=== PATIENT | female | born 1975 | race Caucasian/White ===

== ENCOUNTER 2016-10-17 16:42 | Observation (INO) | payer BC ==
[2016-10-17] VITALS (7 sets, daily range): BP systolic 135–188; BP diastolic 74–99; PULSE 77–94; RESP 15–18; TEMP 98.5; O2SAT 96–98
[~2016-10-17] VITALS: Ht 165.1 cm; Wt 98.1 kg
[~2016-10-17 16:42] MED LIST: AUGM875T PO; FLUT1SPR9 EACH NARE; TIMO0.2525 EACH EYE
[2016-10-17] MEDS ORDERED: SODIUM CHLOR 0.9% 1000 ML INJ 1,000 ML IV ONE (16:46)
[2016-10-17] MEDS ORDERED: niCARdipine INJ 25 MG in SODIUM CHLOR 0.9% 250 ML INJ 250 ML IV SCH (17:00)
--- NOTE | 2016-10-17 17:08 | RADRPT ---
EXAM DATE/TIME: 10/17/2016 16:52 [facility] COMPARISON: No previous studies available for comparison. INDICATIONS : Stroke Alert- left sided weakness. RADIATION DOSE: 39.14 CTDIvol (mGy) This report was called by Dr Silveira to Dr. Gage at 1705 MEDICAL HISTORY : None SURGICAL HISTORY : None. ENCOUNTER: Initial ACUITY: 1 day PAIN SCALE: 2/10 LOCATION: Bilateral cranial TECHNIQUE: Multiple contiguous axial images were obtained of the head. Using automated exposure control and adj ustment of the mA and/or kV according to patient size, radiation dose was kept as low as reasonably a chievable to obtain optimal diagnostic quality images. FINDINGS: CEREBRUM: The ventricles are normal for age. No evidence of midline shift, mass lesion, hemorrhage or acute in farction. No extra-axial fluid collections are seen. POSTERIOR FOSSA: The cerebellum and brainstem are intact. The 4th ventricle is midline. The cerebellopontine angle i s unremarkable. EXTRACRANIAL: The visualized portion of the orbits is intact. SKULL: The calvaria is intact. No evidence of skull fracture. CONCLUSION: Normal examination. Chacho Silveira Jr., MD on October 17, 2016 at 17:04 Board Certified Radiologist. This report was verified electronically.
[2016-10-17 17:15] LABS: AUTOMATED NEUTROPHIL # 5.9 TH/MM3 (1.8-7.7); BASOPHIL # 0.1 TH/MM3 (0-0.2); BASOPHIL % 0.6 % (0.0-2.0); EOSINOPHIL # 0.3 TH/MM3 (0-0.4); EOSINOPHIL % 2.9 % (0.0-4.0); HEMATOCRIT 39.9 % (35.0-46.0); HEMO FLAGS DIFF FINAL; LYMPH % 30.8 % (9.0-44.0); LYMPHOCYTE # 3.1 TH/MM3 (1.0-4.8); MEAN CELL VOLUME 83.4 FL (80.0-100.0); MEAN CORPUSCULAR HEMOGLOBIN 27.3 PG (27.0-34.0); MEAN CORPUSCULAR HGB CONC 32.8 % (32.0-36.0); MONO % 6.5 % (0.0-8.0); NEUT % 59.2 % (16.0-70.0); PLATELET COUNT 281 TH/MM3 (150-450); RED BLOOD COUNT 4.79 MIL/MM3 (4.00-5.30); RED CELL DISTRIBUTION WIDTH 13.9 % (11.6-17.2)
[2016-10-17 17:16] LABS: BLOOD, URINE NEG (NEG); GLUCOSE,URINE NEG (NEG); KETONE, URINE NEG (NEG); MUCUS URINE FEW /lpf (OCC); NITRITE,URINE NEG (NEG); PH, URINE 5.5 (5.0-8.5); SQUAMOUS EPITHELIAL CELL URINE 7 /hpf (0-5); URINE COLOR YELLOW (YELLW/STRAW)
--- NOTE | 2016-10-17 17:17 | PD ---
HPI Chief Complaint: left facial numbness Time Seen by Provider: 16:45 Travel History International Travel<30 days: No Contact w/Intl Traveler<30days: No History of Present Illness HPI 40-year-old female presents with 1-1/2 hour history of left-sided numbness and feeling like her face feels funny. She states over the past 2 days she's had intermittent headache but denies one currently. She denies any numbness to her arms or legs. She denies any specific weakness. She denies any trauma. 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 Quality is feels funny. Severity is left side of face. PFSH Past Medical History Autoimmune Disease: Yes (states "unidentified autoimmune disease") Diminished Hearing: No Gastrointestinal Disorders: Yes (fatty liver) Tubal Ligation: Yes Past Surgical History Gynecologic Surgery: Yes (LEFT FALLOPIAN TUBE REMOVAL) Social History Alcohol Use: No Tobacco Use: No Substance Use: No Allergies-Medications (Allergen,Severity, Reaction): Coded Allergies: Epinephrine (Verified Allergy, Severe, SEIZURES, 10/17/16) Keflex (Verified Allergy, Severe, Hives, 10/17/16) Cipro (Verified Allergy, Unknown, HIVES, 10/17/16) Zithromax (Verified Allergy, Unknown, HIVES, 10/17/16) Reported Meds & Prescriptions Reported Meds & Active Scripts Active No Active Prescriptions or Reported Medications Review of Systems Except as stated in HPI: all other systems reviewed are Neg Physical Exam Narrative GENERAL: Well-nourished, well-developed patient. SKIN: Warm and dry. HEAD: Normocephalic and atraumatic. EYES: No injection or drainage. ENT: No nasal drainage noted. NECK: Supple, trachea midline. CARDIOVASCULAR: Regular rate and rhythm RESPIRATORY: no increased effort. No accessory muscle use. GASTROINTESTINAL: Abdomen soft, non-tender, nondistended. EXTREMITIES: No edema. NEUROLOGICAL: Awake and alert. Motor and sensory grossly within normal limits except subjectively states left face feels different. Normal speech. Facial droop noted Data Data Last Documented VS Vital Signs Date Time Temp Pulse Resp B/P Pulse Ox O2 Delivery O2 Flow Rate FiO2 10/17/16 18:32 84 15 135/74 96 Room Air 10/17/16 16:46 21 Orders Diet Npo (10/17/16 Dinner) Activity Bed Rest (10/17/16 ) Electrocardiogram (10/17/16 ) I-Stat Creatinine (10/17/16 16:46) I-Stat Profile (10/17/16 16:46) Prothrombin Time / Inr (Pt) (10/17/16 16:46) Act Partial Throm Time (Ptt) (10/17/16 16:46) Complete Blood Count With Diff (10/17/16 16:46) Fibrinogen (10/17/16 16:46) Creatine Kinase (Cpk) (10/17/16 16:46) Troponin I (10/17/16 16:46) Ua Includes Microscopic (10/17/16 16:46) Drug Screen, Random Urine (10/17/16 16:46) Type And Screen (10/17/16 16:46) Ct Brain W/O Iv Contrast(Rout) (10/17/16 ) Chest, Single Ap (10/17/16 ) Beta Hcg (Quant/Titer) (10/17/16 16:46) Blood Glucose (10/17/16 16:46) Ecg Monitoring (10/17/16 16:46) Neuro Checks Q2HX12,Q4H (10/17/16 16:46) Nursing Bedside Swallow Assess .ONCE (10/17/16 16:46) Iv Access Insert/Monitor (10/17/16 16:46) NPO (10/17/16 16:46) Oximetry (10/17/16 16:46) Sodium Chlor 0.9% 1000 Ml Inj (Ns 1000 M (10/17/16 16:46) Resp Oxygen Francois C Titrat 1-4 L (10/17/16 16:46) Cath For Specimen (10/17/16 16:46) Nicardipine Inj (Cardene Inj) (10/17/16 17:00) Mri Brain W/O Contrast (10/17/16 ) Mra Brain W/O Contrast (Cow) (10/17/16 ) Mri C Spine W/O Contrast (10/17/16 ) Consult Neurology (10/17/16 ) Admit Order (Ed Use Only) (10/17/16 18:33) Labs Laboratory Tests Test 10/17/16 10/17/16 16:50 16:55 White Blood Count 10.0 TH/MM3 Red Blood Count 4.79 MIL/MM3 Hemoglobin 13.1 GM/DL Bedside Hemoglobin 14.3 G/DL Hematocrit 39.9 % Bedside Hematocrit 42.0 % Mean Corpuscular Volume 83.4 FL Mean Corpuscular Hemoglobin 27.3 PG Mean Corpuscular Hemoglobin 32.8 % Concent Red Cell Distribution Width 13.9 % Platelet Count 281 TH/MM3 Mean Platelet Volume 7.4 FL Neutrophils (%) (Auto) 59.2 % Lymphocytes (%) (Auto) 30.8 % Monocytes (%) (Auto) 6.5 % Eosinophils (%) (Auto) 2.9 % Basophils (%) (Auto) 0.6 % Neutrophils # (Auto) 5.9 TH/MM3 Lymphocytes # (Auto) 3.1 TH/MM3 Monocytes # (Auto) 0.7 TH/MM3 Eosinophils # (Auto) 0.3 TH/MM3 Basophils # (Auto) 0.1 TH/MM3 CBC Comment DIFF FINAL Differential Comment Prothrombin Time 10.0 SEC Prothromb Time International 0.9 RATIO Ratio Activated Partial 28.0 SEC Thromboplast Time Fibrinogen 342 mg/dL Bedside Sodium 141 MMOL/L Bedside Potassium 3.3 MMOL/L Bedside Chloride 101 MMOL/L Bedside Blood Urea Nitrogen 13 MG/DL Bedside Creatinine 0.7 MG/DL Bedside Glucose 123 MG/DL Total Creatine Kinase 59 U/L Troponin I LESS THAN 0.02 NG/ML Human Chorionic Gonadotropin, LESS THAN 1 Quant MIU/ML Blood Type O POSITIVE Antibody Screen NEGATIVE Blood Bank Comment Urine Color YELLOW Urine Turbidity HAZY Urine pH 5.5 Urine Specific [place] 1.031 Urine Protein TRACE mg/dL Urine Glucose (UA) NEG mg/dL Urine Ketones NEG mg/dL Urine Occult Blood NEG Urine Nitrite NEG Urine Bilirubin NEG Urine Urobilinogen LESS THAN 2.0 MG/DL Urine Leukocyte Esterase NEG Urine RBC LESS THAN 1 /hpf Urine WBC 1 /hpf Urine Squamous Epithelial 7 /hpf Cells Urine Mucus FEW /lpf Microscopic Urinalysis Comment Urine Opiates Screen NEG Urine Barbiturates Screen NEG Urine Amphetamines Screen NEG Urine Benzodiazepines Screen NEG Urine Cocaine Screen NEG Urine Cannabinoids Screen NEG [facility] Medical Decision Making Medical Screen Exam Complete: Yes Emergency Medical Condition: Yes Medical Record Reviewed: Yes (pmh confirmed) Interpretation(s) CBC & BMP Diagram 10/17/16 16:50 Last 24 hours Impressions Head Magnetic Resonance Angiography 10/17/16 0000 Signed Impressions: Service Date/Time: Monday, October 17, 2016 17:40 - CONCLUSION: 1. Negative examination. Tom Bales MD Head CT 10/17/16 0000 Signed Impressions: Service Date/Time: Monday, October 17, 2016 16:52 - CONCLUSION: Normal examination. Chacho Silveira Jr., MD Chest X-Ray 10/17/16 0000 Signed Impressions: Service Date/Time: Monday, October 17, 2016 17:14 - CONCLUSION: 1. No acute cardiopulmonary findings. Tom Bales MD Brain MRI 10/17/16 0000 Signed Impressions: Service Date/Time: Monday, October 17, 2016 17:40 - CONCLUSION: 1. Chronic maxillary sinus disease. 2. No acute intracranial abnormality. Chacho Silveira Jr., MD EKG shows NSR, no ST elevation or depression, and no arrhythmias. No significant T-wave inversions. Differential Diagnosis Mass, bleed, Zamarripa's palsy, stroke.... Narrative Course Given window Will initiate stroke alert and discuss with neurologist Patient's blood pressure improved on its own without medication. CT without bleed. nih stroke scale 2 for me with mild facial droop and sensory changes in face mri's no acute, will place in observation for monitoring after discussion with dr wood Physician Communication Physician Communication dr wood states no tpa given minor symptoms dr wood states to place in observation, no need for aspirin, ?migraine dr nunez agrees to admit Diagnosis Primary Impression: Facial numbness Scripts No Active Prescriptions or Reported Meds Maria E Gage MD Oct 17, 2016 17:17 Maria E Gage MD Oct 17, 2016 17:17
[2016-10-17 17:18] LABS: I-STAT POTASSIUM 3.3 MMOL/L (3.5-4.9); I-STAT SODIUM 141 MMOL/L (138-146)
[2016-10-17 17:23] LABS: AMPHETAMINE, URINE NEG (NEG); BARBITURATES, URINE NEG (NEG); COCAINE, URINE NEG (NEG)
--- NOTE | 2016-10-17 17:24 | RADRPT ---
EXAM DATE/TIME: 10/17/2016 17:14 [facility] COMPARISON: No previous studies available for comparison. INDICATIONS : Stroke alert. Patient came to ER with headache and facial pain. MEDICAL HISTORY : None. SURGICAL HISTORY : None. ENCOUNTER: Initial ACUITY: 1 day PAIN SCORE: 0/10 LOCATION: chest FINDINGS: A single view of the chest demonstrates the lungs to be symmetrically aerated without evidence of mas s, infiltrate or effusion. The cardiomediastinal contours are unremarkable. Osseous structures are intact. CONCLUSION: 1. No acute cardiopulmonary findings. Tom Bales MD on October 17, 2016 at 17:22 Board Certified Radiologist. This report was verified electronically.
[2016-10-17 17:37] LABS: BETA HCG QUANT LESS THAN 1 MIU/ML (0-5); INTERNATIONAL NORMALIZED RATIO 0.9 RATIO
[2016-10-17 17:39] LABS: CREATINE KINASE 59 U/L (26-192)
--- NOTE | 2016-10-17 18:00 | RADRPT ---
EXAM DATE/TIME: 10/17/2016 17:40 [facility] COMPARISON: No previous studies available for comparison. INDICATIONS : CVA. Cephalgia and left arm weakness. Vision changes. MEDICAL HISTORY : None. SURGICAL HISTORY : Tubal ligation. ENCOUNTER: Subsequent ACUITY: 1 day PAIN SCORE: 3/10 LOCATION: head. Please note a normal MRA of the brain does not entirely exclude the possibility of a small aneurysm, nor the possibility of distal intracranial vessel disease. TECHNIQUE: 3D time of flight MRA was performed. Source images, multiplanar STS MIP, and 3D volume MIP reconstru ctions were reviewed. FINDINGS: There is excellent visualization of the major intracranial arteries out to the second-order branch ve ssels. There is no evidence for aneurysm, vessel truncation or stenosis, and no evidence for vascula r malformation. CONCLUSION: 1. Negative examination. Tom Bales MD on October 17, 2016 at 17:56 Board Certified Radiologist. This report was verified electronically.
--- NOTE | 2016-10-17 18:22 | RADRPT ---
EXAM DATE/TIME: 10/17/2016 17:40 [facility] COMPARISON: CT BRAIN W/O CONTRAST, October 17, 2016, 16:52. INDICATIONS : CVA. Cephalgia and left arm weakness. Vision changes. MEDICAL HISTORY : None. SURGICAL HISTORY : Tubal ligation. ENCOUNTER: Subsequent ACUITY: 1 day PAIN SCORE: 3/10 LOCATION: head. TECHNIQUE: Multiplanar, multisequence MRI of the brain was performed without contrast. FINDINGS: CEREBRUM: The ventricles are normal for age. No evidence of midline shift, mass lesion, hemorrhage or acute in farction. No extraaxial fluid collections are seen. The pituitary gland and suprasellar cistern are normal in configuration. WHITE MATTER: No significant signal abnormalities are seen in the white matter. POSTERIOR FOSSA: The cerebellum and brainstem are intact. The 4th ventricle is midline. The cerebellopontine angle is unremarkable. The cerebellar tonsils are normal in position. DIFFUSION IMAGING: No focal areas of restricted diffusion are seen. No evidence of acute infarction. EXTRACRANIAL: The visualized portions of the orbits are unremarkable. Mucosal thickening without air-fluid levels a re seen involving the maxillary sinuses bilaterally. Mastoid air cells are clear. CONCLUSION: 1. Chronic maxillary sinus disease. 2. No acute intracranial abnormality. Chacho Silveira Jr., MD on October 17, 2016 at 18:12 Board Certified Radiologist. This report was verified electronically.
[2016-10-17] MEDS ORDERED: SODIUM CHLORIDE 0.9% FLUSH 10 ML FLUSH IV FLUSH PRN (18:45)
[2016-10-17] MEDS ORDERED: ACETAMINOPHEN 325 MG TAB PO PRN (18:45)
[2016-10-17] MEDS ORDERED: hydrALAZINE HCL 10 MG TAB PO PRN (18:45)
[2016-10-17] MEDS ORDERED: NALOXONE HCL 0.4 MG/ML AMP IV PRN (18:45)
[2016-10-17] MEDS ORDERED: ACETAMINOPHEN/HYDROcodone 325 MG/5 MG TAB PO PRN (18:45)
[2016-10-17] MEDS ORDERED: ONDANSETRON HCL 4 MG/2 ML VIAL IVP PRN (18:45)
--- NOTE | 2016-10-17 20:09 | RADRPT ---
EXAM DATE/TIME: 10/17/2016 18:56 [facility] COMPARISON: No previous studies available for comparison. INDICATIONS : Transient ischemic attack. MEDICAL HISTORY : Fatty liver disease. Ectopic . SURGICAL HISTORY : Tubal ligation. Left salpingectomy. ENCOUNTER: Initial ACUITY: 1 day PAIN SCORE: 0/10 LOCATION: Bilateral neck PEAK SYSTOLIC VELOCITIES (cm/sec): ICA/CCA RATIO: Right: 1.0 Left: 0.9 ICA: Right: 102 Left: 86 CCA: Right: 99 Left: 97 ECA: Right: 101 Left: 108 VERTEBRAL: Right: 53 antegrade Left: 47 antegrade Elevated flow velocities and ICA/CCA ratios have been found to correlate with increased degrees of vessel stenosis, calculated as percentage of diameter relative to a normal segment of distal ICA/CCA FINDINGS: RIGHT CAROTID: No significant stenosis is visualized. The waveforms are within normal limits. LEFT CAROTID: No significant stenosis is visualized. The waveforms are within normal limits. VERTEBRAL ARTERIES: Antegrade flow is seen in both vertebral arteries. MISCELLANEOUS: None. CONCLUSION: Unremarkable exam no evidence of stenosis. Gerardo Hunt MD on October 17, 2016 at 20:06 Board Certified Radiologist. This report was verified electronically.
--- NOTE | 2016-10-17 20:13 | MH ---
cc: JT HOWARD MD DATE OF ADMISSION 10/17/2016 DATE OF 1975 No travel in the last 30 days. CHIEF COMPLAINT Left facial numbness and headache. HISTORY OF THE PRESENT ILLNESS This is a pleasant 40-year female who is been experiencing some headaches for the past 3 days. She states that she has noted some waxing and waning of these headaches for the past 2 weeks. She has also noted some facial numbness which has lasted approximately an hour and half before being checked in the emergency room. The patient currently has a mild left facial droop but no acute numbness noted in her extremities. She denies any recent trauma. She does have autoimmune disease, but otherwise has been fairly healthy. She has been followed in the past for headaches which she feels may have been cluster headaches. But this was approximately 10 years ago or more. Up until the last few days the patient had been in her normal state of health without any other issues. PAST MEDICAL HISTORY 1. Unidentified autoimmune disease. 2. ____. 3. Fatty liver disease. 4. Headaches, possible cluster headaches. 5. History of epilepsy. PAST SURGICAL HISTORY Left fallopian tube removal. ALLERGIES CIPRO, EPINEPHRINE, KEFLEX, ZITHROMAX. SOCIAL HISTORY The patient is , currently lives at home with her . She has family at her bedside. She denies any tobacco or illicit drug use but does partake rare social alcohol drink. MEDICATIONS Reported, no active. REVIEW OF SYSTEMS Positives noted in HPI which have been some headaches and her facial numbness with some mild left-sided droop. Other systems negative or unremarkable. PHYSICAL EXAMINATION VITAL SIGNS: Pulse is 84-94, respiratory rate 15, blood pressure initially 188/99 and now 135/74. O2 sat 96% on room air. GENERAL: Obese female, looks to be her stated age resting on a stretcher. She is alert, oriented and cooperative. Speech is understandable but possibly slower than her norm according to her family. Skin is pink mucous membranes, warm and dry. HEENT: Atraumatic, normocephalic. PERRLA. Her smile is asymmetric with some mild drooping noted to the left corner. Tongue is midline. NECK: Supple. HEART: Sounds S1-S2, regular rate and rhythm. No murmurs, rubs, or gallops. She has no current edema in her lower extremities. LUNGS: Are essentially clear anteriorly and posteriorly with no wheezes, rales or rhonchi. ABDOMEN: Round, soft, nontender, nondistended. Active bowel sounds. MUSCULOSKELETAL: Moves her upper and lower extremities with purpose. She has equal clam treader. NEUROLOGIC: She is alert, oriented. A good historian. Positive left facial droop noted, still has some numbness. PSYCHIATRIC: Appropriate mood and affect. LABORATORY DATA Diagnostic data, negative for any opiates, barbiturates, amphetamines, benzodiazepines, cocaine or cannabis. PT INR is 0.9. APTT 28. Fibrinogen level 342. WBC count 10, RBC 4.79, hemoglobin 13.1 and 14.3 on the POC hemoglobin. Dif is negative. Chemistry, sodium 141, potassium 3.3, chloride 101, BUN 13, creatinine 0.7, glucose 123. Creatine kinase 59. Troponin 0.02. HCG less than 1.0. Urine is negative except for the turbid color of yellow and hazy, trace of protein. Negative for leukocyte esterase. IMAGING The imaging studies show a brain MRI to be chronic maxillary sinus disease. Chest x-ray is normal. Head CT is normal examination. MRA of the head is negative examination. ASSESSMENT 1. Facial numbness with facial droop, rule out TIA or CVA event. 2. Headaches, acute on chronic. 3. History of epilepsy. 4. Hypokalemia, mild. Our plan is to admit initially for observation. We will monitor vital signs q.4 and as needed. Keep her on telemetry. Start her on D5 and half NS with 20 of K and recheck labs in the morning. As needed medications for pain and nausea. DVT prophylaxis with heparin. 2-D echo, carotid ultrasound to be done. We have consulted neuro for his expert opinion. We will continue to monitor her symptom management. The patient is full code, full aggressive care. We will follow. Dictated by: ADI Ricks MD PONCHO Stanley/DAYAN /6:59 PM /7:35 PM
--- NOTE | 2016-10-17 20:40 | RADRPT ---
EXAM DATE/TIME: 10/17/2016 20:07 [facility] COMPARISON: No previous studies available for comparison. INDICATIONS : Left arm weakness. MEDICAL HISTORY : None. SURGICAL HISTORY : Tubal ligation. ENCOUNTER: Subsequent ACUITY: 1 day PAIN SCORE: 0/10 LOCATION: neck. TECHNIQUE: Multiplanar, multisequence MRI examination of the cervical spine was performed. FINDINGS: VERTEBRAE: Normal vertebral body height. Homogeneous marrow signal. ALIGNMENT: No evidence of subluxation. CORD: Normal configuration and signal. POST FOSSA: The cerebellar tonsils are normal in position. C2-C3: The thecal sac has a normal configuration. There is no evidence of disc herniation or spinal canal s tenosis. The neural foramina are patent bilaterally. C3-C4: The thecal sac has a normal configuration. There is no evidence of disc herniation or spinal canal s tenosis. The neural foramina are patent bilaterally. C4-C5: The thecal sac has a normal configuration. There is no evidence of disc herniation or spinal canal s tenosis. The neural foramina are patent bilaterally. C5-C6: The thecal sac has a normal configuration. There is no evidence of disc herniation or spinal canal s tenosis. The neural foramina are patent bilaterally. C6-C7: The thecal sac has a normal configuration. There is no evidence of disc herniation or spinal canal s tenosis. The neural foramina are patent bilaterally. C7-T1: The thecal sac has a normal configuration. There is no evidence of disc herniation or spinal canal s tenosis. The neural foramina are patent bilaterally. CONCLUSION: Unremarkable exam. Gerardo Hunt MD on October 17, 2016 at 20:37 Board Certified Radiologist. This report was verified electronically.
[2016-10-17] MEDS: D5-1/2 NS + KCL 20 MEQ INJ 1,000 ML IV SCH (20:44)
[2016-10-17] MEDS: HEPARIN SODIUM - SQ 10,000 UNITS/ML VIAL SQ SCH (20:45)
[2016-10-17] MEDS: SODIUM CHLORIDE 0.9% FLUSH 10 ML FLUSH IV FLUSH SCH (20:45)
[2016-10-18] VITALS (9 sets, daily range): BP systolic 103–146; BP diastolic 57–88; PULSE 64–83; RESP 16–21; TEMP 97.5–99; O2SAT 95–99
[2016-10-18 04:20] LABS: AUTOMATED NEUTROPHIL # 4.4 TH/MM3 (1.8-7.7); BASOPHIL % 0.4 % (0.0-2.0); EOSINOPHIL # 0.2 TH/MM3 (0-0.4); EOSINOPHIL % 3.1 % (0.0-4.0); HEMO FLAGS DIFF FINAL; LYMPHOCYTE # 2.3 TH/MM3 (1.0-4.8); MEAN CELL VOLUME 83.5 FL (80.0-100.0); MEAN CORPUSCULAR HEMOGLOBIN 27.3 PG (27.0-34.0); MEAN CORPUSCULAR HGB CONC 32.7 % (32.0-36.0); MONO % 6.1 % (0.0-8.0); NEUT % 59.4 % (16.0-70.0); PLATELET COUNT 242 TH/MM3 (150-450); RED BLOOD COUNT 4.43 MIL/MM3 (4.00-5.30); RED CELL DISTRIBUTION WIDTH 14.1 % (11.6-17.2); WHITE BLOOD COUNT 7.4 TH/MM3 (4.0-11.0)
[2016-10-18 04:50] LABS: BICARBONATE 25.7 MEQ/L (21.0-32.0); POTASSIUM 3.8 MEQ/L (3.5-5.1)
[2016-10-18 04:56] LABS: HDL CHOLESTEROL 39.6 MG/DL (40.0-60.0)
[2016-10-18] MEDS: HEPARIN SODIUM - SQ 10,000 UNITS/ML VIAL SQ SCH (08:42)
[2016-10-18] MEDS: SODIUM CHLORIDE 0.9% FLUSH 10 ML FLUSH IV FLUSH SCH ×2 (08:42→23:11)
--- NOTE | 2016-10-18 08:52 | MB ---
cc: TERESA BRAR. PHD DATE OF CONSULTATION 10/17/2016 REASON FOR CONSULTATION Stroke alert HISTORY OF PRESENT ILLNESS Ms. Johnson is a 40-year-old female who has a past medical history of iritis. She has developed a severe headache over the past several days which she describes as being a right occipital throbbing headache coming and going in pulses. Earlier today shortly before arrival, she started to feel a sense of weakness of the left face with some numbness. She might have had some mild numbness of the left arm, but initially she denied this symptom. Denied weakness of the extremities. She has no history of migraine headaches or stroke in the past. PERSONAL HISTORY History of iritis otherwise unremarkable. MEDICATIONS AT HOME None NEUROLOGIC EXAMINATION Blood pressure initially was elevated, currently it is 144/83, pulse is 94, respirations of 15. Higher cortical functions are normal including speech and cranial nerve exam. She is alert. The pupils are equal and reactive to light. The extraocular movements are intact. I do not see a definite facial droop at the present time. She is able to activate facial muscles symmetric. Sensation is subjectively diminished in the left face. On motor examination, she has got 5/5 strength of all groups in both upper and lower extremities. At the present time, there is no drift. Fine motor skills are normal. Sensory exam diminished in the left arm and left leg. Is soft to touch. Reflexes are symmetric. CT of the brain is normal. MRA of the brain is within normal limits. MRI of the brain was accomplished, the result of which is pending at the present time. IMPRESSION At the present time, I do not identify signs to indicate a stroke. Migraine variant is a possibility. The patient is not a candidate for IV tPA due to the ambiguity of her symptoms not definitely stroke-like in nature. Would recommend follow up on the official report of the brain MRI. I did review the images of the brain MRI and did not see any definite diffusion abnormality. We will also obtain an MRI of the cervical spine to be sure she does not have cervical spondylosis contributing to her headache which appears to be predominantly in the occipital area. MD NOELLE Yadav/JUAN A /6:17 PM 8:37 AM
--- NOTE | 2016-10-18 08:59 | HHI.PR ---
Subjective Remarks Resting in bed sleeping soundly this early a.m. States that she still has some numbness especially in her mouth Possible dysphasia, ST to eval Vital signs trends normal (Coty Morales) Objective Objective Results - Vital Signs Date Time Temp Pulse Resp B/P Pulse Ox O2 Delivery O2 Flow Rate FiO2 10/18/16 08:23 98 21 10/18/16 08:22 97.9 73 16 125/60 98 122/79 125/86 10/18/16 04:57 98.4 70 18 146/69 97 10/18/16 01:30 98.4 73 21 116/58 98 10/17/16 23:17 77 10/17/16 21:18 98.5 87 18 158/95 98 10/17/16 18:59 75 16 135/74 98 10/17/16 18:32 84 15 135/74 96 Room Air 10/17/16 17:07 94 15 144/83 97 10/17/16 16:55 84 15 188/99 98 Room Air 10/17/16 16:55 82 15 188/99 98 Room Air 10/17/16 16:55 88 15 99 Room Air 10/17/16 16:46 98 21 (Coty Morales) Result Diagram: 10/18/16 0405 10/18/16 0405 ROS General: Other (10 point ROS done positives noted) HEENT: Dysphagia (possible secondary to the numbness in her mouth) Neuro/MS: Headache (especially around the right occipital area over the past month), Other (significant history of headaches, still has some oral numbness) ( Coty Morales) Physical Exam Physical Exam PHYSICAL EXAMINATION GENERAL: This is a obese well-nourished female who appears to be in no acute distress except for facial numbness. She is alert and awake, HEAD: Normocephalic, atraumatic OROPHARYNGEAL: Oropharynx clear with no drooling noted NECK: Supple. Trachea midline without deviation. CARDIAC: Regular rhythm, regular rate, S1 and S2 are heard LUNGS: Clear to auscultation bilaterally. No rhonchi or wheezing ABDOMEN: Round, Soft, nontender, bowel sounds are active EXTREMITIES: no edema. Pulses equal bilateral. NEUROLOGICAL: Patient mood and affect appropriate. Still having some facial and oral numbness SKIN:Warm and moist Objective Remarks Still feels some numbness around my face (Coty Morales) A/P Assessment and Plan 1. Facial numbness with facial droop, rule out TIA or CVA event. 2. Headaches, acute on chronic., Migraines, complicated 3. History of epilepsy. 4. Hypokalemia, mild., Resolved 5. Possible cervical spondylosis 6. Hyperlipidemia Vital signs reviewed normal trends Labs reviewed, noted hyperlipidemia, will need to follow up with her PCP for any further medical management as well as maintaining her diet and exercise and weight loss Appreciate neuro consult, according to his note there is no definite diffusion or abnormalities with her MRI. Will review an MRI of the cervical spine to rule out any cervical spondylosis At this point TIA and CVA are probably ruled out. These symptoms could be complications of her migraines in which she will need follow-up as an outpatient when discharged PT ST consults pending, will eval swallow and maintain patient nothing by mouth for now until she is evaluated. PT to eval patient out of bed and gait Discussed with patient Discussed with nurse Discussed with Dr. mendieta, patient seen on her behalf (Coty Morales) Assessment and Plan patient seen and examined complaining of intermittent occipital headache and right sided facial stiffness MRI brain and C spine neg echo, lipid profile neg patient has had elaborate work up n the past, likely diagnosed with trigeminal neuralgia awaiting Neuro clearance for discharge. patient would like to d/w Dr Pitts. discussed with patient nad family in detail discussed with Coty JOSHI (Batsheva Mendieta MD) Coty Morales Oct 18, 2016 08:59 Batsheva Mendieta MD Oct 18, 2016 13:23
--- NOTE | 2016-10-18 11:02 | ECHRPT ---
Indication: CVA/TIA CONCLUSIONS Normal left ventricular size. Wall thickness is normal. The left ventricular systolic function is hy perdynamic with an estimated ejection fraction in the range of 65-70%. No regional wall motion abnormalities ar e present. BP: 122 / 79 HR: 73 Rhythm: Sinus MEASUREMENTS (Male / Female) Normal Values Technical Quality:Fair 2D ECHO LV Diastolic Diameter PLAX 3.9 cm 4.2 - 5.9 / 3.9 - 5.3 cm LV Systolic Diameter PLAX 2.4 cm IVS Diastolic Thickness 1.1 cm 0.6 - 1.0 / 0.6 - 0.9 cm LVPW Diastolic Thickness 1.1 cm 0.6 - 1.0 / 0.6 - 0.9 cm LV Relative Wall Thickness 0.6 RV Internal Dim ED PLAX 2.6 cm LVOT Diameter 2.0 cm LA Systolic Diameter LX 2.8 cm 3.0 - 4.0 / 2.7 - 3.8 cm LV Ejection Fraction MOD 4C 67.7 % LV Cardiac Index MOD 4C 2227.9 cm/minm LV Ejection Fraction 4C AL 69.2 % LV Cardiac Index 4C AL 2348.7 cm/minm M-MODE Aortic Root Diameter MM 2.5 cm AV Cusp Separation MM 1.6 cm DOPPLER AV Peak Velocity 134.0 cm/s AV Peak Gradient 7.2 mmHg LVOT Peak Velocity 103.0 cm/s LVOT Peak Gradient 4.2 mmHg AV Area Cont Eq pk 2.4 cm MV Area PHT 3.0 cm Mitral E Point Velocity 110.0 cm/s Mitral A Point Velocity 68.1 cm/s Mitral E to A Ratio 1.6 LV E' Lateral Velocity 14.1 cm/s Mitral E to LV E' Lateral Ratio 7.8 LV E' Septal Velocity 10.0 cm/s Mitral E to LV E' Septal Ratio 11.0 PV Peak Velocity 100.0 cm/s PV Peak Gradient 4.0 mmHg FINDINGS Left Ventricle Normal left ventricular size. Wall thickness is normal. The left ventricular systolic function is hy perdynamic with an estimated ejection fraction in the range of 65-70%. No regional wall motion abnormalities ar e present. Right Ventricle Normal right ventricular size and systolic function. Left Atrium The left atrial size is normal. Right Atrium The right atrial size is normal. Atrial Septum Normal atrial septal thickness without atrial level shunting by limited color doppler interrogation. Aorta The aortic root and proximal ascending aorta are normal in size on limited imaging. Mitral Valve Structurally normal mitral valve. No mitral valve stenosis or regurgitation. Aortic Valve Trileaflet aortic valve. No aortic valve stenosis or regurgitation. Tricuspid Valve Structurally normal tricuspid valve. No tricuspid valve stenosis or regurgitation. Pulmonary Valve The pulmonary valve is not well visualized. Vessels The inferior vena cava is normal in size. Pericardium No pericardial effusion. Newton Caceres MD, FACC (Electronically Signed) Final Date:18 October 2016 11:02
--- NOTE | 2016-10-18 13:58 | EKG ---
Date Performed: 10/17/2016 Time Performed: 18:32:46 PTAGE: 40 years EKG: Sinus rhythm NORMAL ECG NO PREVIOUS TRACING DOCTOR: Teofilo Polanco Interpretating Date/Time 10/18/2016 13:56:03
--- NOTE | 2016-10-18 15:38 | HHI.PR ---
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 However I would like to r/ o other autoimmune process given her history as well as iritis---r/o MS, lupus, sarcoid, Lyme disease, Ayala Ramírez Syndrome Plan Lumbar Puncture LAB for ESR, ROX, RF, Lyme Pcr, angiotensin converting enzyme Diagnosis/Plan: Subjective Subjective Comments Pt has developed right facial weakness. Denies numbness or weakness of UE or LE She relates additional history--when she was 15 years old had seizures requiring anticonvulsant therapy and was told by neurologist she had "lesions on the brain" She also developed a right sided facial pain starting around the ear with radiation down mandible area. She thought these were "cluster headaches." Active Medications Current Medications Medications (Trade) Dose Ordered Sig/Judy Route Start Time Stop Time Status Last Admin (D5-05/14 NS + KCl 20 Meq Inj) 1,000 ml @ 50 mls/hr Q20H IV 10/17/16 18:38 10/17/16 20:44 (NS Flush) 2 ml UNSCH PRN IV FLUSH 10/17/16 18:45 (NS Flush) 2 ml BID IV FLUSH 10/17/16 21:00 10/18/16 08:42 (Tylenol) 650 mg Q4H PRN PO 10/17/16 18:45 (Zofran Inj) 4 mg Q6H PRN IVP 10/17/16 18:45 (Heparin Inj) 5,000 units Q12H SQ 10/17/16 21:00 10/18/16 08:42 (Narcan Inj) 0.4 mg UNSCH PRN IV 10/17/16 18:45 ([place] 5-325 Mg) 1 tab Q6H PRN PO 10/17/16 18:45 (Apresoline) 10 mg Q6HR PRN PO 10/17/16 18:45 Allergies Allergies Coded Allergies Epinephrine (Verified Allergy, Severe, SEIZURES, 10/17/16) Keflex (Verified Allergy, Severe, Hives, 10/17/16) Cipro (Verified Allergy, Unknown, HIVES, 10/17/16) Zithromax (Verified Allergy, Unknown, HIVES, 10/17/16) Exam I&O / VS Vital Signs Date Time Temp Pulse Resp B/P Pulse Ox O2 Delivery O2 Flow Rate FiO2 10/18/16 15:27 97.5 83 16 139/81 95 10/18/16 11:33 97.8 72 16 124/81 97 10/18/16 08:23 98 21 10/18/16 08:22 97.9 73 16 125/60 98 122/79 125/86 10/18/16 08:00 64 10/18/16 04:57 98.4 70 18 146/69 97 10/18/16 01:30 98.4 73 21 116/58 98 10/17/16 23:17 77 10/17/16 21:18 98.5 87 18 158/95 98 10/17/16 18:59 75 16 135/74 98 10/17/16 18:32 84 15 135/74 96 Room Air 10/17/16 17:07 94 15 144/83 97 10/17/16 16:55 84 15 188/99 98 Room Air 10/17/16 16:55 82 15 188/99 98 Room Air 10/17/16 16:55 88 15 99 Room Air 10/17/16 16:46 98 21 Exam Comments alert oriented, speech is normal CN--right lower motor neuron CN 7 palsey. She is weak on the forehead, eye closure, lower face on the right . EOM--intact. PERRL MOTOR--normal Objective Radiology Results MRI brain--normal MRA brain--normal MRI cervical spine --normal carotid US--normal Micro and Labs Laboratory Tests Test 10/17/16 10/17/16 10/17/16 10/18/16 16:50 16:55 23:57 04:05 White Blood Count 10.0 7.4 Red Blood Count 4.79 4.43 Hemoglobin 13.1 12.1 Bedside Hemoglobin 14.3 Hematocrit 39.9 37.0 Bedside Hematocrit 42.0 Mean Corpuscular Volume 83.4 83.5 Mean Corpuscular Hemoglobin 27.3 27.3 Mean Corpuscular Hemoglobin 32.8 32.7 Concent Red Cell Distribution Width 13.9 14.1 Platelet Count 281 242 Mean Platelet Volume 7.4 7.2 Neutrophils (%) (Auto) 59.2 59.4 Lymphocytes (%) (Auto) 30.8 31.0 Monocytes (%) (Auto) 6.5 6.1 Eosinophils (%) (Auto) 2.9 3.1 Basophils (%) (Auto) 0.6 0.4 Neutrophils # (Auto) 5.9 4.4 Lymphocytes # (Auto) 3.1 2.3 Monocytes # (Auto) 0.7 0.5 Eosinophils # (Auto) 0.3 0.2 Basophils # (Auto) 0.1 0.0 CBC Comment DIFF FINAL DIFF FINAL Differential Comment Prothrombin Time 10.0 Prothromb Time International 0.9 Ratio Activated Partial 28.0 Thromboplast Time Fibrinogen 342 Bedside Sodium 141 Bedside Potassium 3.3 Bedside Chloride 101 Bedside Blood Urea Nitrogen 13 Bedside Creatinine 0.7 Bedside Glucose 123 Total Creatine Kinase 59 Troponin I LESS THAN 0.02 LESS THAN 0.02 LESS THAN 0.02 Human Chorionic Gonadotropin, LESS THAN 1 Quant Blood Type O POSITIVE Antibody Screen NEGATIVE Blood Bank Comment Urine Color YELLOW Urine Turbidity HAZY Urine pH 5.5 Urine Specific Colt 1.031 Urine Protein TRACE Urine Glucose (UA) NEG Urine Ketones NEG Urine Occult Blood NEG Urine Nitrite NEG Urine Bilirubin NEG Urine Urobilinogen LESS THAN 2.0 Urine Leukocyte Esterase NEG Urine RBC LESS THAN 1 Urine WBC 1 Urine Squamous Epithelial 7 Cells Urine Mucus FEW Microscopic Urinalysis Comment Urine Opiates Screen NEG Urine Barbiturates Screen NEG Urine Amphetamines Screen NEG Urine Benzodiazepines Screen NEG Urine Cocaine Screen NEG Urine Cannabinoids Screen NEG Sodium Level 140 Potassium Level 3.8 Chloride Level 105 Carbon Dioxide Level 25.7 Anion Gap 9 Blood Urea Nitrogen 12 Creatinine 0.63 Estimat Glomerular Filtration 104 Rate Random Glucose 98 Calcium Level 8.5 Triglycerides Level 97 Cholesterol Level 164 LDL Cholesterol 105 HDL Cholesterol 39.6 Cholesterol/HDL Ratio 4.14 Khris Pitts PhD Oct 18, 2016 15:38
[2016-10-18] MEDS: D5-1/2 NS + KCL 20 MEQ INJ 1,000 ML IV SCH (17:21)
[2016-10-18] MEDS ORDERED: ARTIFICIAL TEARS OPTH OINT 3.5 APPLIC/3.5 GM TUBO EACH EYE SCH (21:00)
[2016-10-18 23:49] LABS: ALT (GPT) 75 U/L (10-53); AST (GOT) 37 U/L (15-37); RHEUMATOID FACTOR TRIGGER LESS THAN 10.0 IU/ML (0.0-14.9)
[2016-10-19 00:15] VITALS: PULSE 65
[2016-10-19 05:15] VITALS: BP 111/53; PULSE 67; RESP 18; TEMP 98; O2SAT 97
[2016-10-19 08:00] VITALS: PULSE 66
--- NOTE | 2016-10-19 08:01 | HHI.PR ---
Subjective Remarks lumbar puncture this am. post procedure, alert taking PO fluids well. afebrile mild numbness tongue and rt. face. (Coty Morales) Objective Objective Results - Vital Signs Date Time Temp Pulse Resp B/P Pulse Ox O2 Delivery O2 Flow Rate FiO2 10/19/16 05:15 98.0 67 18 111/53 97 10/19/16 00:15 65 10/18/16 23:16 99.0 70 18 103/57 99 10/18/16 19:53 98.4 80 18 139/88 98 10/18/16 15:27 97.5 83 16 139/81 95 10/18/16 11:33 97.8 72 16 124/81 97 10/18/16 08:23 98 21 10/18/16 08:22 97.9 73 16 125/60 98 122/79 125/86 10/18/16 08:00 64 I/O 10/18/16 10/18/16 10/18/16 10/19/16 10/19/16 10/19/16 07:00 15:00 23:00 07:00 15:00 23:00 Intake Total 480 ml Balance 480 ml Intake Oral 480 ml # Voids 1 (Coty Morales) Result Diagram: 10/18/16 0405 10/18/16 0405 ROS General: Weakness (improved) HEENT: Other (lt facial . droop,) Neuro/MS: Other (facial numbness improving) (Coty Morales) Physical Exam Physical Exam PHYSICAL EXAMINATION GENERAL: This is a well developed female who appears to be in no acute distress. She is alert and awake, HEAD: Atraumatic, left-sided facial droop continues OROPHARYNGEAL: Oropharynx clear secretions NECK: Supple. Trachea midline without deviation. CARDIAC: Regular rhythm, regular rate, S1 and S2 are heard. LUNGS: Clear to auscultation bilaterally. ABDOMEN: Soft, nontender, no organomegaly or masses. Bowel sounds are heard in all four quadrants. EXTREMITIES: no edema. Pulses equal bilateral. NEUROLOGICAL: Left-sided facial droop, numbness SKIN:Warm and moist Objective Remarks I'm feeling better today (Coty Morales) A/P Assessment and Plan 1. Facial numbness with facial droop, rule out TIA or CVA event. Zamarripa's palsy 2. Headaches, acute on chronic., Migraines, complicated 3. History of epilepsy. 4. Hypokalemia, mild., Resolved 5. Possible cervical spondylosis 6. Hyperlipidemia Vital signs reviewed normal trends Labs reviewed, noted hyperlipidemia, will need to follow up with her PCP for any further medical management as well as maintaining her diet and exercise and weight loss Appreciate neuro consult, lumbar puncture done this am. no definite diffusion or abnormalities with her MRI. She is on bed rest until 4 PM. Labs from lumbar puncture are pending Neuro okays medical discharge from his perspective after 4 PM. Cranial nerve VII palsy per neuro Medical management, will will taper steroids with by mouth, Lacri-Lube eyedrops. Discussed with patient Discussed with nurse, planned for discharge today after 4pm Discussed with Dr. mendieta, patient seen on her behalf (Coty Morales) Assessment and Plan patient seen and examined still with right sided facial stiffness s/p LP this am bed rest until 4 pm ok to d/c home after that on prednisone taper and follow up outpatient with Dr Hong lester 1 week [facility] with [facility] discussed with Coty JOSHI (Batsheva Mendieta MD) Coty Morales Oct 19, 2016 08:01 Batsheva Mendieta MD Oct 19, 2016 12:32
--- NOTE | 2016-10-19 08:13 | PD.RAD ---
Post Procedure Progress Note Pre Procedure Diagnosis: (1) Facial numbness Post Procedure Diagnosis: (1) Facial numbness Procedure Date: Oct 19, 2016 Supervising Radiologist: Saul Gipson Proceduralist/Assist: Elly Murdock RT(R), RT Starr(R)() Anesthesia: Local Plan of Activity Patient to Unit: Nursing Unit Patient Condition: Good Additional Comments: L2-3 puncture. Clear CSF. See PACS Report for procedural detail/treatment Saul Gipson MD Oct 19, 2016 08:13
[2016-10-19] MEDS: SODIUM CHLORIDE 0.9% FLUSH 10 ML FLUSH IV FLUSH SCH (08:37)
--- NOTE | 2016-10-19 08:42 | RADRPT ---
EXAM DATE/TIME: 10/19/2016 08:50 [place] COMPARISON: No previous studies available for comparison. INDICATIONS : Patient is in need of a lumbar puncture for evaluation of CSF. MEDICAL HISTORY : History of Zamarripa's palsy, epilepsy, headaches, fatty liver disease. SURGICAL HISTORY : History of left fallopian tube removal. ENCOUNTER: Initial ACUITY: 1 day PAIN SCORE: 0/10 LUMBAR PUNCTURE TIME: 0800 hours FLUORO TIME: 0.1 minutes IMAGE SERIES: 0 ACCESS LEVEL: L2-3 FLUID: 16 cc of clear CSF was collected and sent to the laboratory for analysis. PROCEDURE : 1. Fluoroscopic guided lumbar puncture. The risks, benefits and alternatives to the procedure were explained and verbal and written consent w as obtained. The site was prepped in sterile fashion. Full sterile technique was used, including ca p, mask, sterile gloves and gown and a large sterile sheet. Hand hygiene and 2% chlorhexidine and/or betadine/alcohol prep was utilized per protocol for cutaneous antisepsis. The skin and subcutaneous tissues were infiltrated with local anesthetic solution. With fluoroscopic guidance the lumbar thecal sac was punctured at the level above. The fluid describ ed above was removed without difficulty. The patient tolerated the procedure well and there were no complications. CONCLUSION: Uncomplicated fluoroscopically guided lumbar puncture. Saul Gipson MD on October 19, 2016 at 8:40 Board Certified Radiologist. This report was verified electronically.
[2016-10-19 08:49] VITALS: BP 110/59; PULSE 66; RESP 20; TEMP 98.1; O2SAT 97
[2016-10-19 09:31] LABS: GROSS BLOOD TUBE #1 0 (0); GROSS BLOOD TUBE #2 0 (0); SUPERNATE COLOR TUBE #1 CLEAR (CLEAR); SUPERNATE COLOR TUBE #2 CLEAR (CLEAR); VOLUME TUBE # 1 3.5 ML
[2016-10-19 09:32] LABS: GROSS BLOOD TUBE #3 0 (0); SUPERNATE COLOR TUBE #3 CLEAR (CLEAR); SUPERNATE COLOR TUBE #4 CLEAR (CLEAR); VOLUME TUBE # 3 3.5 ML; VOLUME TUBE # 4 5.2 ML
[2016-10-19 09:33] LABS: CSF LYMPHOCYTES 45 %; CSF MONOCYTES 35 %; CSF NEUTROPHILS 20 %; WBC TUBE #4 7 /MM3 (0-10)
[2016-10-19 09:41] LABS: GROSS BLOOD TUBE #4 TRACE (0)
[2016-10-19] MEDS: D5-1/2 NS + KCL 20 MEQ INJ 1,000 ML IV SCH (10:41)
--- NOTE | 2016-10-19 10:59 | HHI.PR ---
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 CSF so far normal Plan bedrest until 4 pm. THen ok to discharge home from neurology standpoint with RX for prednisone taper, artificial tears, lacrilube to right eye follow up with me next week in my office. Diagnosis/Plan: Subjective Subjective Comments No acute events reported feels right facial weakness is worse. No other co. Tolerated LP well Active Medications Current Medications Medications (Trade) Dose Ordered Sig/Judy Route Start Time Stop Time Status Last Admin (D5-1/2 NS + KCl 20 Meq Inj) 1,000 ml @ 50 mls/hr Q20H IV 10/17/16 18:38 10/19/16 10:41 (NS Flush) 2 ml UNSCH PRN IV FLUSH 10/17/16 18:45 (NS Flush) 2 ml BID IV FLUSH 10/17/16 21:00 10/19/16 08:37 (Tylenol) 650 mg Q4H PRN PO 10/17/16 18:45 (Zofran Inj) 4 mg Q6H PRN IVP 10/17/16 18:45 (Narcan Inj) 0.4 mg UNSCH PRN IV 10/17/16 18:45 ([place] 5-325 Mg) 1 tab Q6H PRN PO 10/17/16 18:45 10/18/16 23:13 (Apresoline) 10 mg Q6HR PRN PO 10/17/16 18:45 (Lacrilube Opht Oint) 1 applic HS EACH EYE 10/18/16 21:00 10/18/16 23:11 Allergies Allergies Coded Allergies Epinephrine (Verified Allergy, Severe, SEIZURES, 10/17/16) Keflex (Verified Allergy, Severe, Hives, 10/17/16) Cipro (Verified Allergy, Unknown, HIVES, 10/17/16) Zithromax (Verified Allergy, Unknown, HIVES, 10/17/16) Exam I&O / VS 10/18/16 10/18/16 10/19/16 15:00 23:00 07:00 Intake Total 480 ml Balance 480 ml Intake Oral 480 ml # Voids 1 Vital Signs Date Time Temp Pulse Resp B/P Pulse Ox O2 Delivery O2 Flow Rate FiO2 10/19/16 08:49 98.1 66 20 110/59 97 10/19/16 08:00 66 10/19/16 05:15 98.0 67 18 111/53 97 10/19/16 00:15 65 10/18/16 23:16 99.0 70 18 103/57 99 10/18/16 19:53 98.4 80 18 139/88 98 10/18/16 15:27 97.5 83 16 139/81 95 10/18/16 11:33 97.8 72 16 124/81 97 Exam Comments alert oriented, speech is normal CN--right lower motor neuron CN 7 palsey. She is weak on the forehead, eye closure, lower face on the right . EOM--intact. PERRL MOTOR--normal Objective Micro and Labs Laboratory Tests Test 10/18/16 10/19/16 23:17 08:00 Erythrocyte Sedimentation Rate 25 Aspartate Amino Transf 37 (AST/SGOT) Alanine Aminotransferase 75 (ALT/SGPT) Rheumatoid Factor Screen NEGATIVE Rheumatoid Factor Titer CSF Volume (Tube 1) 3.5 CSF Supernatant Color (tube 1) CLEAR CSF Gross Blood (Tube 1) 0 CSF Volume (Tube 2) 3.0 CSF Supernatant Color (tube 2) CLEAR CSF Gross Blood (Tube 2) 0 CSF Volume (Tube 3) 3.5 CSF Supernatant Color (tube 3) CLEAR CSF Gross Blood (Tube 3) 0 CSF Volume (Tube 4) 5.2 CSF Supernatant Color (tube 4) CLEAR CSF Gross Blood (Tube 4) TRACE CSF WBC (Tube 4) 7 CSF RBC (Tube 4) 321 CSF Neutrophils 20 CSF Lymphocytes 45 CSF Monocytes 35 CSF Glucose 58 CSF Total Protein 43.7 Date/Time Procedure Status Source Growth 10/19/16 08:00 Gram Stain - Final Resulted Cerebral Spinal Fluid Lumbar Puncture 10/19/16 08:00 CSF Culture Resulted Cerebral Spinal Fluid Lumbar Puncture Pending 10/19/16 08:00 Fungal Smear - Final Resulted Cerebral Spinal Fluid Lumbar Puncture NO FUNGAL ELEMENTS SEEN. 10/19/16 08:00 Fungal Culture Resulted Cerebral Spinal Fluid Lumbar Puncture Pending 10/19/16 08:00 Acid Fast Stain Received Cerebral Spinal Fluid Lumbar Puncture Pending 10/19/16 08:00 Mycobacterial Culture Received Cerebral Spinal Fluid Lumbar Puncture Pending Khris Pitts PhD Oct 19, 2016 10:58
[2016-10-19 11:00] VITALS: BP_SYST 111; BP_SYST 133; BP_DIAS 55; BP_DIAS 72; PULSE 69; RESP 20; TEMP 98.1; O2SAT 97
[2016-10-19] MEDS ORDERED: predniSONE 20 MG TAB PO ONE (11:15)
[2016-10-19] MEDS ORDERED: PRED20 PO (11:54)
[2016-10-19] MEDS ORDERED: IBUPROFEN 200 MG TAB PO PRN (14:00)
--- NOTE | 2016-10-19 16:52 | HHI.DS ---
Discharge Summary Admission Date Oct 17, 2016 at 18:35 Discharge Date: Oct 19, 2016 Admitting Diagnosis facial numbness Procedures lumbar puncture Brief History This is a pleasant 40-year female who has been experiencing some headaches for the past 3 days. She stated that she has noted some waxing and waning of these headaches for the past 2 weeks. She had also noted some facial numbness which has lasted approximately an hour and half before being checked in the emergency room. The patient currently has a mild left facial droop but no acute numbness noted in her extremities. She denies any recent trauma. She does have autoimmune disease, but otherwise had been fairly healthy. She had been followed in the past for headaches which she felt may have been cluster headaches. CBC/BMP: 10/18/16 0405 10/18/16 0405 Significant Findings Laboratory Tests Test 10/17/16 10/17/16 10/17/16 10/18/16 16:50 16:55 23:57 04:05 Bedside Potassium 3.3 MMOL/L (3.5-4.9) Bedside Glucose 123 MG/DL (60-95) Troponin I LESS THAN 0.02 LESS THAN 0.02 LESS THAN 0.02 NG/ML NG/ML NG/ML (0.02-0.05) (0.02-0.05) (0.02-0.05) Urine Turbidity HAZY (CLEAR) Urine Mucus FEW /lpf (OCC) LDL Cholesterol 105 MG/DL (0-99) HDL Cholesterol 39.6 MG/DL (40.0-60.0) Test 10/18/16 10/19/16 23:17 08:00 Erythrocyte Sedimentation Rate 25 mm/hr (0-20) Alanine Aminotransferase 75 U/L (10-53) (ALT/SGPT) CSF Gross Blood (Tube 4) TRACE (0) CSF RBC (Tube 4) 321 /MM3 (NONE) Imaging Last Impressions Lumbar Puncture Fluoroscopy 10/19/16 0000 Signed Impressions: Service Date/Time: Wednesday, October 19, 2016 08:50 - CONCLUSION: Uncomplicated fluoroscopically guided lumbar puncture. Saul Gipson MD Head Magnetic Resonance Angiography 10/17/16 0000 Signed Impressions: Service Date/Time: Monday, October 17, 2016 17:40 - CONCLUSION: 1. Negative examination. Tom Bales MD Head CT 6/7/17 0000 Signed Impressions: Service Date/Time: Monday, October 17, 2016 16:52 - CONCLUSION: Normal examination. Chacho Silveira Jr., MD Chest X-Ray 10/17/16 Signed Impressions: Service Date/Time: Monday, October 17, 2016 17:14 - CONCLUSION: 1. No acute cardiopulmonary findings. Tom Bales MD Cervical Spine MRI 10/17/16 Signed Impressions: Service Date/Time: Monday, October 17, 2016 20:07 - CONCLUSION: Unremarkable exam. Gerardo Hunt MD Carotid Artery Ultrasound 10/17/16 Signed Impressions: Service Date/Time: Monday, October 17, 2016 18:56 - CONCLUSION: Unremarkable exam no evidence of stenosis. Gerardo Hunt MD Brain MRI 10/17/16 Signed Impressions: Service Date/Time: Monday, October 17, 2016 17:40 - CONCLUSION: 1. Chronic maxillary sinus disease. 2. No acute intracranial abnormality. Chacho Silveira Jr., MD PE at Discharge PHYSICAL EXAMINATION GENERAL: This is a well developed female who appears to be in no acute distress. She is alert and awake, HEAD: Atraumatic, left-sided facial droop continues OROPHARYNGEAL: Oropharynx clear secretions NECK: Supple. Trachea midline without deviation. CARDIAC: Regular rhythm, regular rate, S1 and S2 are heard. LUNGS: Clear to auscultation bilaterally. ABDOMEN: Soft, nontender, no organomegaly or masses. Bowel sounds are heard in all four quadrants. EXTREMITIES: no edema. Pulses equal bilateral. NEUROLOGICAL: Left-sided facial droop, numbness SKIN:Warm and moist Hospital Course These are the diagnoses that were used to treat patient during her brief hospital stay 1. Facial numbness with facial droop, rule out TIA or CVA event. Zamarripa's palsy 2. Headaches, acute on chronic., Migraines, complicated 3. History of epilepsy. 4. Hypokalemia, mild., Resolved 5. Possible cervical spondylosis 6. Hyperlipidemia Vital signs reviewed normal trends, throughout hospital stay Labs reviewed, noted hyperlipidemia, will need to follow up with her PCP for any further medical management as well as maintaining her diet and exercise and weight loss Appreciate neuro consult, lumbar puncture as well as multiple x-rays and MRIs to identify her acute event. no definite diffusion or abnormalities with her MRI. Patient has had neurological workup in the past, but he did been years ago. TIA and CVA were ruled out in the first 24 hours, but it was thought that her facial numbness may have been an uncontrolled migraine. 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 Neuro okays medical discharge from his perspective after 4 PM., Patient had lumbar puncture today. Test results are pending and will be discussed on her follow-up visit as an outpatient Cranial nerve VII palsy per neuro Medical management, will will taper steroids with by mouth, Lacri-Lube eyedrops. Discharge planning for patient to go home on 10-19, with follow-up this next week with neurology. Patient still has facial numbness but is having no problems swallowing and will be on rest at home. Patient is medically stable for discharge after 4 PM Pt Condition on Discharge: Stable Discharge Disposition: Discharge Home Discharge Instructions DIET: Follow Instructions for: Heart Healthy Diet Activities you can perform: Regular-No Restrictions Follow up Referrals: Neurology - 1 Week with Khris Pitts PhD MD New Medications: Prednisone (Prednisone) 20 Mg Tab 20 MG PO DIRECTED Take 60 MG daily x 6 days, then 40 MG x 4 days, then 20 MG daily x 4 days. Zamarripa's palsy #40 Ref 0 TAB Coty Morales Oct 19, 2016 16:52
[2016-10-21 23:52] LABS: LYME DISEASE PCR NOT DETECTED (())
[2016-10-22 08:17] LABS: CSF CRYPTOCOCCUS AG CONF ND (NOT DETECTD)
[2016-10-22 10:13] LABS: ALBUMIN SERUM 4140 mg/dL (3200 - 4800); IGG CSF 3.3 mg/dL (<=8.1); IGG INDEX CSF 0.52 (<=0.85); IGG SERUM 1120 mg/dL (767 - 1590); IGG/ALBUMIN CSF 0.14 (<=0.21); IGG/ALBUMIN SERUM 0.27 (<=0.40); OLIGOCLONAL BANDING CSF 3 bands (()); OLIGOCLONAL BANDING INTERPRET 0 bands (<4); OLIGOCLONAL BANDING SERUM 3 bands (()); SYNTHESIS RATE CSF 0.66 mg/24 h (<=12)
[2016-10-23 01:15] LABS: LYME IGG IMMUNOBLOT CSF None Detected bands (None Detected); LYME IGM IMMUNOBLOT CSF None Detected bands (None Detected)
[2016-10-23 19:52] LABS: VDRL CSF NON-REACTIVE (())
== END 2016-10-19 16:35 | disposition home or self-care (01) ==
LOC: NEPC 16:42 → NEDA 18:35 → NEPHCDU 20:32
PROVIDERS: ADMIT Internal Medicine; ATTEND Internal Medicine
DX: G51.0 Bell's palsy (principal); G43.109 Migraine with aura, not intractable, without status migrainosus; K76.0 Fatty (change of) liver, not elsewhere classified; E87.6 Hypokalemia; E78.5 Hyperlipidemia, unspecified; Z88.1 Allergy status to other antibiotic agents; Z88.8 Allergy status to other drugs, medicaments and biological substances; Z86.69 Personal history of other diseases of the nervous system and sense organs
CPT/HCPCS: 62270; 70450; 70544; 70551; 71010; 72141; 77003; 80048; 80061; 80307; 81001; 82040; 82042; 82164; 82435; 82550; 82565; 82784; 82945; 82947; 82948; 83873; 83916; 84132; 84157; 84295; 84450; 84460; 84484; 84520; 84702; 85025; 85384; 85610; 85652; 85730; 86038; 86403; 86430; 86592; 86618; 86850; 86900; 86901; 87015; 87070; 87102; 87116; 87205; 87206; 87801; 89051; 92526; 92610; 93005; 93306; 93880; 97162; 97166; 99285; G0378; G8987; G8988; G8996; G8997; G8998; J1644; J3480; J7030; J7512

== ENCOUNTER 2016-11-13 05:27 | Emergency (ER) | payer BC ==
[~2016-11-13 05:27] MED LIST changes: -AUGM875T PO; -FLUT1SPR9 EACH NARE; +PRED20 PO; -TIMO0.2525 EACH EYE
[2016-11-13 05:29] VITALS: BP 126/80; PULSE 78; RESP 16; TEMP 99.3; O2SAT 99
[2016-11-13] MEDS ORDERED: AMOX500C PO (05:38)
--- NOTE | 2016-11-13 05:42 | PD ---
HPI Chief Complaint: ENT Complaint Time Seen by Provider: 05:39 Travel History International Travel<30 days: No Contact w/Intl Traveler<30days: No Traveled to known affect area: No History of Present Illness HPI 40-year-old white female since emergent department with a two-day history of sore throat. She states that she's had strep throat and peritonsillar abscess in the past. She states that this feels the same. She denies any fever or chills. Positive sore throat, difficulty swallowing. She states that she was treated 2 weeks ago for Zamarripa's palsy which has nearly completely resolved. She is been on a prednisone taper. No cough, shortness of breath, nausea, vomiting , diarrhea or abdominal pain. PFSH Past Medical History Narrative Medical Zamarripa's palsy Hx Anticoagulant Therapy: No Asthma: No Autoimmune Disease: Yes (states "unidentified autoimmune disease") Blood Disorders: No Heart Rhythm Problems: No Cancer: No Cardiovascular Problems: No High Cholesterol: No Chemotherapy: No Chest Pain: No Congestive Heart Failure: No COPD: No Cerebrovascular Accident: No Diabetes: No Diminished Hearing: No Endocrine: No Gastrointestinal Disorders: Yes (fatty liver) Immune Disorder: No Musculoskeletal: No Neurologic: No Psychiatric: No Reproductive: No Respiratory: No Radiation Therapy: No Sleep Apnea: No Thyroid Disease: No Tetanus Vaccination: < 5 Years Ectopic : Yes Tubal Ligation: Yes Past Surgical History Gynecologic Surgery: Yes (LEFT FALLOPIAN TUBE REMOVAL) Social History Alcohol Use: No Tobacco Use: No Substance Use: No Allergies-Medications (Allergen,Severity, Reaction): Coded Allergies: Epinephrine (Verified Allergy, Severe, SEIZURES, 10/17/16) Keflex (Verified Allergy, Severe, Hives, 10/17/16) Cipro (Verified Allergy, Unknown, HIVES, 10/17/16) Zithromax (Verified Allergy, Unknown, HIVES, 10/17/16) Reported Meds & Prescriptions Reported Meds & Active Scripts Active Amoxicillin 500 Mg Cap 500 Mg PO TID Prednisone 20 Mg Tab 20 Mg PO DIRECTED Take 60 MG daily x 6 days, then 40 MG x 4 days, then 20 MG daily x 4 days. Review of Systems Except as stated in HPI: all other systems reviewed are Neg Physical Exam Narrative GENERAL: Well-developed, well-nourished in no acute distress. Nontoxic appearing. HEAD: Normocephalic, atraumatic. EYES: Pupils equal round and reactive. Extraocular motions intact. No scleral icterus. No injection or drainage. ENT: TMs clear without erythema. The external auditory canals clear. Nose: clear . Posterior pharynx is erythematous and moist. Positive tonsillar edema but no exudate. Uvula midline. Airway patent. NECK: Trachea midline.Supple, nontender, moves head freely. No central bony tenderness or spasm. CARDIOVASCULAR: Regular rate and rhythm without murmurs, gallops, or rubs. RESPIRATORY: Clear to auscultation. Breath sounds equal bilaterally. No wheezes , rales, or rhonchi. GASTROINTESTINAL: Abdomen soft, non-tender, nondistended. No hepato-splenomegaly , or palpable masses. No guarding. EXTREMITIES: No clubbing, cyanosis, or edema. No joint tenderness, effusion, or edema noted. BACK: Nontender without deformity or crepitance. No flank tenderness. Data Data Last Documented VS Vital Signs Date Time Temp Pulse Resp B/P Pulse Ox O2 Delivery O2 Flow Rate FiO2 11/13/16 05:29 99.3 78 16 126/80 99 Orders Amoxicillin (Trimox) (11/13/16 05:45) [facility] Medical Decision Making Medical Screen Exam Complete: Yes Emergency Medical Condition: Yes Medical Record Reviewed: Yes Differential Diagnosis MDM: High Differential diagnoses: Strep throat, viral pharyngitis, mono, peritonsillar abscess, retropharyngeal abscess, Winston's angina Narrative Course Patient is given amoxicillin 1 g by mouth. This is acute pharyngitis Diagnosis Primary Impression: Acute pharyngitis Qualified Code: J02.9 - Acute pharyngitis, unspecified etiology Patient Instructions: General Instructions Additional Instructions: Rest. Force fluids. Saltwater gargles. Tylenol and Advil. Chloraseptic [place] Cepastat lozenge. Amoxicillin. Follow-up with a primary care doctor in one week. Return to the ER if any problems. Med/Other Pt SpecificInfo: Prescription(s) given Scripts Amoxicillin 500 Mg [id number] Mg PO TID #30 CAP Prov:Janey Haynes MD 11/13/16 Disposition: 01 DISCHARGE HOME Condition: Stable Roberto Tijerina Nov 13, 2016 05:42
[2016-11-13] MEDS ORDERED: AMOXICILLIN (TRIHYDRATE) 500 MG CAP PO ONE (05:45)
== END 2016-11-13 05:57 | disposition home or self-care (01) ==
LOC: NEPD 05:27
DX: J02.9 Acute pharyngitis, unspecified (principal)
CPT/HCPCS: 99283

== ENCOUNTER 2016-11-30 16:59 | Emergency (ER) | payer BC ==
[~2016-11-30] VITALS: Ht 165.1 cm; Wt 96.0 kg
[~2016-11-30 16:59] MED LIST changes: +AMOX500C PO
[2016-11-30 17:01] VITALS: BP 134/80; PULSE 104; RESP 14; TEMP 100.3; O2SAT 99
[2016-11-30] MEDS ORDERED: SODIUM CHLOR 0.9% 1000 ML INJ 1,000 ML IV ONE ×2 (19:45→21:45)
[2016-11-30] MEDS ORDERED: ONDANSETRON HCL 4 MG/2 ML VIAL IV PUSH ONE (19:45)
[2016-11-30] MEDS ORDERED: METR250T15 PO (19:46)
[2016-11-30] MEDS ORDERED: DOXY0.02 PO (19:46)
--- NOTE | 2016-11-30 19:51 | PD ---
HPI Chief Complaint: Flank/Kidney Pain Time Seen by Provider: 19:34 Travel History International Travel<30 days: No Contact w/Intl Traveler<30days: No Traveled to known affect area: No History of Present Illness HPI 41yo F presents to the ED with c/o right flank pain since Saturday and was seen by her PMD Dr. Denis. Pt was initially placed on flagyl but states symptoms was not improving so she went to him again yesterday. He switched the antibiotic to doxycycline and she states her flank pain has improved. However, she had fever and nausea since yesterday and wants a second opinion. Denies any chest pain, sob, vomiting, vaginal discharge, dysuria, hematuria. Pt states her menstrual period just started. PFSH Past Medical History Hx Anticoagulant Therapy: No Asthma: No Autoimmune Disease: Yes (states "unidentified autoimmune disease") Blood Disorders: No Heart Rhythm Problems: No Cancer: No Cardiovascular Problems: No High Cholesterol: No Chemotherapy: No Chest Pain: No Congestive Heart Failure: No COPD: No Cerebrovascular Accident: No Diabetes: No Diminished Hearing: No Endocrine: No Gastrointestinal Disorders: Yes (fatty liver) Immune Disorder: No Musculoskeletal: No Neurologic: No Psychiatric: No Reproductive: No Respiratory: No Radiation Therapy: No Sleep Apnea: No Thyroid Disease: No ?: Not LMP: 11/10/16 Ectopic : Yes Tubal Ligation: Yes Past Surgical History Gynecologic Surgery: Yes (LEFT FALLOPIAN TUBE REMOVAL) Social History Alcohol Use: No Tobacco Use: No Substance Use: No Allergies-Medications (Allergen,Severity, Reaction): Coded Allergies: Epinephrine (Verified Allergy, Severe, SEIZURES, 10/17/16) Keflex (Verified Allergy, Severe, Hives, 10/17/16) Cipro (Verified Allergy, Unknown, HIVES, 10/17/16) Zithromax (Verified Allergy, Unknown, HIVES, 10/17/16) Reported Meds & Prescriptions Reported Meds & Active Scripts Active Reported Doxycycline (Doxycycline (Monohydrate)) 50 Mg Cap 50 Mg PO BID Metronidazole 250 Mg Tab 250 Mg PO TID Review of Systems Except as stated in HPI: all other systems reviewed are Neg Physical Exam Narrative GENERAL: 41yo F not in distress. SKIN: Focused skin assessment warm/dry. HEAD: Atraumatic. Normocephalic. CARDIOVASCULAR: Regular rate and rhythm. No murmur appreciated. RESPIRATORY: No accessory muscle use. Clear to auscultation. Breath sounds equal bilaterally. GASTROINTESTINAL: Abdomen soft, mild right flank ttp. No RUQ or RLQ ttp. No rebound tenderness or guarding. BACK: No CVA tenderness bilaterally. MUSCULOSKELETAL: No obvious deformities. No clubbing. No cyanosis. No edema. NEUROLOGICAL: Awake and alert. No obvious cranial nerve deficits. Motor grossly within normal limits. Normal speech. PSYCHIATRIC: Appropriate mood and affect; insight and judgment normal. Data Data Last Documented VS Vital Signs Date Time Temp Pulse Resp B/P Pulse Ox O2 Delivery O2 Flow Rate FiO2 11/30/16 20:41 16 11/30/16 17:01 100.3 104 134/80 99 Orders Urinalysis - C+S If Indicated (11/30/16 19:34) Ed Urine Pregnancytest Poc (11/30/16 19:45) Complete Blood Count With Diff (11/30/16 19:45) Basic Metabolic Panel (Bmp) (11/30/16 19:45) Lipase (11/30/16 19:45) Ondansetron Inj (Zofran Inj) (11/30/16 19:45) Sodium Chlor 0.9% 1000 Ml Inj (Ns 1000 M (11/30/16 19:45) Ketorolac Inj (Toradol Inj) (11/30/16 20:00) Urine Culture (11/30/16 20:50) Sodium Chlor 0.9% 1000 Ml Inj (Ns 1000 M (11/30/16 21:45) Labs Laboratory Tests Test 11/30/16 11/30/16 19:55 20:50 White Blood Count 8.7 TH/MM3 Red Blood Count 4.60 MIL/MM3 Hemoglobin 12.8 GM/DL Hematocrit 38.7 % Mean Corpuscular Volume 84.2 FL Mean Corpuscular Hemoglobin 27.9 PG Mean Corpuscular Hemoglobin 33.1 % Concent Red Cell Distribution Width 14.3 % Platelet Count 255 TH/MM3 Mean Platelet Volume 6.8 FL Neutrophils (%) (Auto) 71.7 % Lymphocytes (%) (Auto) 16.8 % Monocytes (%) (Auto) 10.9 % Eosinophils (%) (Auto) 0.3 % Basophils (%) (Auto) 0.3 % Neutrophils # (Auto) 6.2 TH/MM3 Lymphocytes # (Auto) 1.5 TH/MM3 Monocytes # (Auto) 0.9 TH/MM3 Eosinophils # (Auto) 0.0 TH/MM3 Basophils # (Auto) 0.0 TH/MM3 CBC Comment DIFF FINAL Differential Comment Sodium Level 135 MEQ/L Potassium Level 3.4 MEQ/L Chloride Level 100 MEQ/L Carbon Dioxide Level 25.4 MEQ/L Anion Gap 10 MEQ/L Blood Urea Nitrogen 8 MG/DL Creatinine 0.66 MG/DL Estimat Glomerular Filtration 98 ML/MIN Rate Random Glucose 113 MG/DL Calcium Level 8.9 MG/DL Lipase 64 U/L Urine Color YELLOW Urine Turbidity CLEAR Urine pH 6.0 Urine Specific [place] 1.022 Urine Protein 100 mg/dL Urine Glucose (UA) NEG mg/dL Urine Ketones 40 mg/dL Urine Occult Blood LARGE Urine Nitrite NEG Urine Bilirubin NEG Urine Urobilinogen LESS THAN 2.0 MG/DL Urine Leukocyte Esterase SMALL Urine RBC /hpf Urine WBC /hpf Urine Bacteria MANY /hpf Urine Mucus MANY /lpf Microscopic Urinalysis Comment CULTURE INDICATED MDM Medical Decision Making Medical Screen Exam Complete: Yes Emergency Medical Condition: Yes Interpretation(s) Laboratory Tests Test 11/30/16 11/30/16 19:55 20:50 White Blood Count 8.7 TH/MM3 (4.0-11.0) Red Blood Count 4.60 MIL/MM3 (4.00-5.30) Hemoglobin 12.8 GM/DL (11.6-15.3) Hematocrit 38.7 % (35.0-46.0) Mean Corpuscular Volume 84.2 FL (80.0-100.0) Mean Corpuscular Hemoglobin 27.9 PG (27.0-34.0) Mean Corpuscular Hemoglobin 33.1 % Concent (32.0-36.0) Red Cell Distribution Width 14.3 % (11.6-17.2) Platelet Count 255 TH/MM3 (150-450) Mean Platelet Volume 6.8 FL (7.0-11.0) Neutrophils (%) (Auto) 71.7 % (16.0-70.0) Lymphocytes (%) (Auto) 16.8 % (9.0-44.0) Monocytes (%) (Auto) 10.9 % (0.0-8.0) Eosinophils (%) (Auto) 0.3 % (0.0-4.0) Basophils (%) (Auto) 0.3 % (0.0-2.0) Neutrophils # (Auto) 6.2 TH/MM3 (1.8-7.7) Lymphocytes # (Auto) 1.5 TH/MM3 (1.0-4.8) Monocytes # (Auto) 0.9 TH/MM3 (0-0.9) Eosinophils # (Auto) 0.0 TH/MM3 (0-0.4) Basophils # (Auto) 0.0 TH/MM3 (0-0.2) CBC Comment DIFF FINAL Differential Comment Sodium Level 135 MEQ/L (136-145) Potassium Level 3.4 MEQ/L (3.5-5.1) Chloride Level 100 MEQ/L (98-107) Carbon Dioxide Level 25.4 MEQ/L (21.0-32.0) Anion Gap 10 MEQ/L (5-15) Blood Urea Nitrogen 8 MG/DL (7-18) Creatinine 0.66 MG/DL (0.50-1.00) Estimat Glomerular Filtration 98 ML/MIN (>89) Rate Random Glucose 113 MG/DL (74-106) Calcium Level 8.9 MG/DL (8.5-10.1) Lipase 64 U/L (73-393) Urine Color YELLOW (YELLW/STRAW) Urine Turbidity CLEAR (CLEAR) Urine pH 6.0 (5.0-8.5) Urine Specific [place] 1.022 (1.002-1.035) Urine Protein 100 mg/dL (NEG-TRACE) Urine Glucose (UA) NEG mg/dL (NEG) Urine Ketones 40 mg/dL (NEG) Urine Occult Blood LARGE (NEG) Urine Nitrite NEG (NEG) Urine Bilirubin NEG (NEG) Urine Urobilinogen LESS THAN 2.0 MG/DL (LESS THAN 2.0) Urine Leukocyte Esterase SMALL (NEG) Urine RBC /hpf (0-3) Urine WBC /hpf (0-5) Urine Bacteria MANY /hpf (NONE) Urine Mucus MANY /lpf (OCC) Microscopic Urinalysis Comment CULTURE INDICATED Differential Diagnosis Pyelonephritis vs. nephrolithiasis vs. colitis Narrative Course 41yo F with right side flank pain that is improving with doxycycline that was prescribed by her PMD yesterday. Pt had fever and nausea and was given zofran and NS IVF. Labs reviewed, no leukocytosis. K: 3.4, and pt is tolerating PO. Lipase low. UA showed large blood. Pt is on her menstrual period. Small leukocyte. Pt just took her doxycycline while she was in the ED and is tolerating PO and eating crackers. States she feels better. Urine negative. Will have pt continue to take her doxycycline and return to the ED if symptoms worsen. Pt agrees with plan. Diagnosis Primary Impression: Pyelonephritis Patient Instructions: General Instructions Departure Forms: Tests/Procedures Additional Instructions: Please continue to take the doxycycline that you have. Please take acetaminophen as instructed for fever and pain and zofran as instructed for nausea. Return to the ED if symptoms worsen. Please follow up with your PMD. Med/Other Pt SpecificInfo: Prescription(s) given Scripts Ondansetron Odt (Zofran Odt)4 Mg Tab4 Mg SL Q12HR PRN (Nausea/Vomiting) #10 TAB Ref 0 Prov:Nat Myles DO 11/30/16 Acetaminophen (Tylenol)325 Mg [id number] Mg PO Q6H PRN (PAIN SCALE 1 TO 4) #20 TAB Ref 0 Prov:Nat Myles DO 11/30/16 Disposition: 01 DISCHARGE HOME Condition: Stable Nat Myles DO Nov 30, 2016 19:51
[2016-11-30] MEDS ORDERED: KETOROLAC TROMETHAMINE 30 MG/ML (IVP) VIAL IV PUSH ONE (20:00)
[2016-11-30 20:14] LABS: AUTOMATED NEUTROPHIL # 6.2 TH/MM3 (1.8-7.7); BASOPHIL % 0.3 % (0.0-2.0); EOSINOPHIL % 0.3 % (0.0-4.0); HEMATOCRIT 38.7 % (35.0-46.0); HEMO FLAGS DIFF FINAL; LYMPH % 16.8 % (9.0-44.0); LYMPHOCYTE # 1.5 TH/MM3 (1.0-4.8); MEAN CELL VOLUME 84.2 FL (80.0-100.0); MEAN CORPUSCULAR HEMOGLOBIN 27.9 PG (27.0-34.0); MEAN CORPUSCULAR HGB CONC 33.1 % (32.0-36.0); MONO % 10.9 % (0.0-8.0); NEUT % 71.7 % (16.0-70.0); PLATELET COUNT 255 TH/MM3 (150-450); RED CELL DISTRIBUTION WIDTH 14.3 % (11.6-17.2); WHITE BLOOD COUNT 8.7 TH/MM3 (4.0-11.0)
[2016-11-30 20:40] LABS: BICARBONATE 25.4 MEQ/L (21.0-32.0); POTASSIUM 3.4 MEQ/L (3.5-5.1)
[2016-11-30 21:25] LABS: BACTERIA, URINE MANY /hpf; BLOOD, URINE LARGE (NEG); COMMENT (UR) CULTURE INDICATED; CULTURE IF INDICATED CULTURE INDICATED; GLUCOSE,URINE NEG (NEG); KETONE, URINE 40 mg/dL (NEG); MUCUS URINE MANY /lpf (OCC); NITRITE,URINE NEG (NEG); URINE COLOR YELLOW (YELLW/STRAW)
[2016-11-30] MEDS ORDERED: TYLE325T PO (22:06)
[2016-11-30] MEDS ORDERED: ZOFR4TAB3 SL (22:06)
[2016-11-30] MEDS ORDERED: ACETAMINOPHEN 325 MG TAB PO ONE (22:15)
[2016-11-30 22:22] VITALS: BP 122/63; PULSE 72; RESP 16; TEMP 98.3; O2SAT 98
== END 2016-11-30 22:50 | disposition home or self-care (01) ==
LOC: NEPD 16:59
DX: N12 Tubulo-interstitial nephritis, not specified as acute or chronic (principal); K76.0 Fatty (change of) liver, not elsewhere classified
CPT/HCPCS: 80048; 81001; 83690; 84703; 85025; 87086; 96361; 96374; 96375; 99284; J1885; J2405; J7030